=== PATIENT | female | born 2000 | race Caucasian/White ===

== ENCOUNTER 2022-08-20 08:33 | Outpatient (CLI) | payer OTHER, SELFPAY ==
--- NOTE | ~2022-08-20 | US_ITS ---
Abdominal Sonogram: Real-time sonographic imaging of the abdomen was performed. Clinical History: Epigastric pain Findings: The liver appears normal with no evidence of mass lesion or bile duct dilatation. Main por carlos vein demonstrates normal direction of flow. The spleen is normal in size without evidence of foca l lesion. The gallbladder is well distended, and appears normal with no evidence of gallstone or wal l thickening. The common bile duct measures 3 mm. The visualized pancreas, aorta, and IVC are unrema rkable. The right kidney measures 10.1 cm in length and the left kidney measures 9.5 cm. There is n o hydronephrosis or renal calculus. Impression: Unremarkable abdominal ultrasound. Reviewed, dictated and finalized at location . Impression: Unremarkable abdominal ultrasound.
== END 2022-08-20 08:34 | disposition home or self-care (01) ==
PROVIDERS: PCP Nurse Practitioner Family; Visit Provider Nurse Practitioner
DX: R63.0 Anorexia (principal); R68.81 Early satiety; R11.0 Nausea; R10.13 Epigastric pain; K21.9 Gastro-esophageal reflux disease without esophagitis
CPT/HCPCS: 76700

== ENCOUNTER 2022-09-01 04:39 | Day surgery (SDC) | payer OTHER, SELFPAY ==
[2022-08-29 10:02] VITALS: BMI 20.9
[2022-09-01 10:40] VITALS: BP 126/76; PULSE 72; RESP 18; TEMP 36.4; O2SAT 100; BMI 21.5
[2022-09-01] MEDS: LACTATED RINGERS 1,000 ML 150 ML IV CONT (10:52)
--- NOTE | 2022-09-01 11:04 | P.PNAN_ITS ---
Anes - Initial Pre Proc Eval Procedure: Operation Date: 09/01/22 12:30 Proposed Procedures p Esophagogastroduodenoscopy - Chu Edwards MD Date/Time: 09/01/22 11:04 Surgeon: Chu Edwards MD Pre Op Diagnosis: epigastric pain,nausea,early satiety,anorexia Patient Data Age: 22 Gender: F Height: 1.65 m Weight: 58.8 kg Last Vital Signs Temp 97.6 F 09/01/22 10:40 Pulse 72 09/01/22 10:40 Resp 18 09/01/22 10:40 BP 126/76 09/01/22 10:40 Pulse Ox 100 09/01/22 10:40 O2 Del Method Room Air 09/01/22 10:40 Allergies Allergy/AdvReac Type Severity Reaction Status Date / Time No Known Allergies Allergy Verified 09/01/22 10:42 Home Medications Medication Instructions Recorded Confirmed Type clindamycin phosphate 1 % lotion 1 applic topical DAILY 08/08/22 09/01/22 Histor y hydroxyzine HCl 10 mg tablet 10 mg PO TID PRN other 08/08/22 09/01/22 History lansoprazole 30 mg capsule,delayed 30 mg PO DAILY #30 caps 08/08/22 09/01/22 Rx release norgestimate-ethinyl estradiol 1 tablet PO DAILY 08/08/22 09/01/22 History 0.18 mg/0.215mg/0.25mg-35 mcg(28)tablet (Ortho Tri-Cyclen (28)) tretinoin 0.05 % topical cream 1 applic topical QHS 08/08/22 09/01/22 History Patient hx anesthesia problems: none Family hx anesthesia problems: none Results Review: All pre-operative results and documents have been reviewed as part of the pre- operative evaluation. [facility] Past Medical History Medical History (Updated 08/08/22 @ 11:59 by Jessica Vega APRN) Chronic constipation Decreased appetite Early satiety Epigastric pain GERD (gastroesophageal reflux disease) Nausea Weight loss Family History Family History (Updated 08/08/22 @ 10:50 by Loree Jean-Baptiste MA) Father Hypertension Mother Thyroid disorder Social History Social History (Updated 08/08/22 @ 10:51 by Loree Jean-Baptiste MA) Smoking status: Never smoker Alcohol intake: never Substance use: never Substance use type: does not use Living arrangements: with family Occupation/Education: student Gender identity (if verbalized by the patient): Female Spiritual care concerns: No Anes - Eval Final PreProcedure Day of Procedure 09/01/22 11:04 Patient weight: normal Heart: regular rate and rhythm Lungs: clear to auscultation Airway: Mallampati scale class II Neurological: alert and oriented Last oral intake: >/= 8 hours ASA classification: II Emergent: no Anesthetic plan: proceed Anesthesia type and monitoring: general GIVS and standard monitoring Results Review: All pre-operative results and documents have been reviewed as part of the pre- operative evaluation. Informed Consent: The patient's anesthetic plan and its attendant risks and benefits were discussed with the patient/family/POA. Questions were solicited and answers pr ovided to the satisfaction of the patient/family/POA.
--- NOTE | 2022-09-01 11:09 | WPDHPUPDATE1 ---
History and Physical Update Update Date/Time: 09/01/22 11:09 History and Physical has been reviewed, including an updated exam of the patient. There are NO changes in the patient's condition. Risks, benefits, and alternatives have been discussed and questions answered. Patient agrees to proceed with procedure.
[2022-09-01 11:17] VITALS: BP 117/74; PULSE 91; RESP 41; O2SAT 100
[2022-09-01 11:27] VITALS: BP 116/64; PULSE 92; RESP 38; O2SAT 99
[2022-09-01 11:37] VITALS: BP 99/70; PULSE 93; RESP 19; O2SAT 100
== END 2022-09-01 11:51 | disposition home or self-care (01) ==
PROVIDERS: PCP Nurse Practitioner Family; Visit Provider Internal Medicine Gastroenterology
PROC: 0DJ08ZZ Inspection of Upper Intestinal Tract, Via Natural or Artificial Opening Endoscopic (ICD-10-PCS; CPT 43235; principal; 2022-09-01 12:30)
DX: R10.13 Epigastric pain (principal); R11.0 Nausea; K21.9 Gastro-esophageal reflux disease without esophagitis
CPT/HCPCS: 43239; 88305; J7120

== ENCOUNTER 2022-12-29 01:20 | Day surgery (SDC) | payer OTHER, SELFPAY ==
[2022-12-19 13:29] VITALS: BMI 21.2
--- NOTE | 2022-12-29 10:37 | P.PNAN_ITS ---
Anes - Initial Pre Proc Eval Procedure: Operation Date: 12/29/22 12:30 Proposed Procedures p Colonoscopy - Chu Edwards MD Date/Time: 12/29/22 10:37 Surgeon: hCu Edwards MD Pre Op Diagnosis: Noninfective gastroenteritis and colitis, unspeci Patient Data Age: 22 Gender: F Height: 1.65 m Weight: 58 kg Allergies Allergy/AdvReac Type Severity Reaction Status Date / Time No Known Allergies Allergy Verified 12/29/22 10:37 Home Medications Medication Instructions Recorded Confirmed Type norgestimate-ethinyl estradiol 1 tablet PO DAILY 08/08/22 12/19/22 History 0.18 mg/0.215mg/0.25mg-35 mcg(28)tablet (Ortho Tri-Cyclen (28)) lansoprazole 30 mg capsule,delayed See Rx Instructions .Route 12/08/22 12/19/22 Rx release .COMPLEX #30 caps Patient hx anesthesia problems: none Family hx anesthesia problems: none Results Review: All pre-operative results and documents have been reviewed as part of the pre- operative evaluation. [facility] Past Medical History Medical History (Updated 11/13/22 @ 14:53 by Jessica Vega, CLAUS) Chronic constipation Colitis Decreased appetite Early satiety Epigastric pain GERD (gastroesophageal reflux disease) Nausea Weight loss Family History Family History Father Hypertension Mother Thyroid disorder Social History Social History Smoking status: Current some day smoker Tobacco type: e-cigarettes/vaping Alcohol intake: current Substance use: never Substance use type: does not use Living arrangements: with family Occupation/Education: student Gender identity (if verbalized by the patient): Female Spiritual care concerns: No Anes - Eval Final PreProcedure Day of Procedure 12/29/22 10:37 Patient weight: normal Heart: regular rate and rhythm Lungs: clear to auscultation Airway: Mallampati scale class II Neurological: alert and oriented Last oral intake: >/= 8 hours ASA classification: II Emergent: no Anesthetic plan: proceed Anesthesia type and monitoring: general GIVS and standard monitoring Results Review: All pre-operative results and documents have been reviewed as part of the pre- operative evaluation. Informed Consent: The patient's anesthetic plan and its attendant risks and benefits were discussed with the patient/family/POA. Questions were solicited and answers provided to the satisfaction of the patient/family/POA.
[2022-12-29 10:44] VITALS: BP 122/92; PULSE 113; RESP 18; TEMP 36.3; O2SAT 100
--- NOTE | 2022-12-29 10:48 | PM.HPGS ---
History of Present Illness History of Present Illness Consent: Risks, benefits, and alternatives have been discussed and questions answered. Patient agrees to proceed with procedure. Chief complaint: Noninfective gastroenteritis and colitis, unspeci Narrative: Dc Metzger is a 22 year old female here for first colonoscopy, had lower abdominal pain and went to ER, diagnosed with colitis. She normally has constipation for which is using linzess but only as needed. Review of Systems Constitutional: Constitutional: Denies headache(s) and Denies weakness Eyes: Eyes: Denies blurry vision ENT: Reports Normal hearing present, Denies headache(s) and Denies neck pain Cardiovascular: Cardiovascular: Denies chest pain and Denies dyspnea Respiratory: Respiratory: Denies dyspnea Gastrointestinal: Gastrointestinal: Reports no additional gastrointestinal complaints Genitourinary: Genitourinary: Denies dysuria Musculoskeletal: Musculoskeletal: Denies neck pain Integumentary/Breasts: Skin/Breast: Denies dry skin Neurologic: Reports Normal hearing present, Denies headache(s) and Denies weakness Psychiatric: Psychiatric: Denies anxiety Endocrine: Endocrine: Denies change in body appearance Hematologic/Lymphatic: Hematologic/Lymphatic: Denies easy bleeding Allergic/Immunologic: Allergic/Immunologic: Denies urticaria PMFSH Past Medical History Medical History (Updated 11/13/22 @ 14:53 by Jessica Vega, CLAUS) Chronic constipation Colitis Decreased appetite Early satiety Epigastric pain GERD (gastroesophageal reflux disease) Nausea Weight loss Family History Family History Father Hypertension Mother Thyroid disorder Social History Social History Smoking status: Current some day smoker Tobacco type: e-cigarettes/vaping Alcohol intake: current Substance use: never Substance use type: does not use Living arrangements: with family Occupation/Education: student Gender identity (if verbalized by the patient): Female Spiritual care concerns: No Meds Home Medications and Allergies Home Medications Medication Instructions Recorded Confirmed Type norgestimate-ethinyl estradiol 1 tablet PO DAILY 08/08/22 12/19/22 History 0.18 mg/0.215mg/0.25mg-35 mcg(28)tablet (Ortho Tri-Cyclen (28)) lansoprazole 30 mg capsule,delayed See Rx Instructions .Route 12/08/22 12/19/22 Rx release .COMPLEX #30 caps Allergies Allergy/AdvReac Type Severity Reaction Status Date / Time No Known Allergies Allergy Verified 12/29/22 10:37 Vital Signs Vital Signs - 24 hr 12/29/22 10:44 Temperature 97.3 F L Pulse Rate 113 H Respiratory Rate 18 Blood Pressure 122/92 H Pulse Oximetry 100 Oxygen Delivery Room Air Exam Const: General: comfortable and no acute distress HENMT: Face/Nose/Sinus: Normal nares present Eyes: General: appearance normal, both eyes and all related structures Neck: Neck: no JVD Resp: Auscultation: clear to auscultation bilaterally Cardio: Rate: regular rate Rhythm: regular rhythm GI: Inspection: non-distended GI Palp: Yes Soft to palpation Skin: General skin exam: normal color Neuro: General: gait normal Speech: normal speech Extrem: General: normal to inspection Psych: Mental Status: mental status grossly normal Assessment and Plan Assessment and plan (1) Colitis: Code(s): K52.9 - Noninfective gastroenteritis and colitis, unspecified Status: Acute Assessment and Plan: will assess with colonoscopy (2) Chronic constipation: Code(s): K59.09 - Other constipation Status: Acute
[2022-12-29] MEDS: LACTATED RINGERS 1,000 ML 150 ML IV CONT (10:54)
[2022-12-29 11:12] VITALS: BP 117/78; PULSE 112; RESP 19; O2SAT 97
[2022-12-29 11:22] VITALS: BP 111/71; PULSE 103; RESP 19; O2SAT 100
[2022-12-29 11:32] VITALS: BP 117/81; PULSE 83; RESP 18; O2SAT 99
== END 2022-12-29 11:48 | disposition home or self-care (01) ==
PROVIDERS: PCP Nurse Practitioner Family; Visit Provider Internal Medicine Gastroenterology
PROC: 0DJD8ZZ Inspection of Lower Intestinal Tract, Via Natural or Artificial Opening Endoscopic (ICD-10-PCS; CPT 45378; principal; 2022-12-29 12:30)
DX: Z09 Encounter for follow-up examination after completed treatment for conditions other than malignant neoplasm (principal); Z87.19 Personal history of other diseases of the digestive system; K59.09 Other constipation; K21.9 Gastro-esophageal reflux disease without esophagitis; F17.290 Nicotine dependence, other tobacco product, uncomplicated
CPT/HCPCS: 45378; J2704; J7120